=== PATIENT | female | born 1950 | race Caucasian/White ===

== ENCOUNTER 2016-09-08 23:23 | Emergency (ER) | payer OTHER ==
[~2016-09-08] VITALS: Ht 165.1 cm; Wt 67.0 kg
[~2016-09-08 23:23] MED LIST: CHLO25CA PO; LISI10TA PO; TRAM50 PO; ZIPR20 PO
[2016-09-08 23:26] VITALS: BP 163/74; PULSE 84; RESP 18; TEMP 97.2; O2SAT 98
[2016-09-09] MEDS ORDERED: LISI10TA3 PO (01:24)
[2016-09-09] MEDS ORDERED: ULTR50TA5 PO (01:24)
--- NOTE | 2016-09-09 01:58 | PD ---
HPI Chief Complaint: Fall Time Seen by Provider: 01:54 Travel History International Travel<30 days: No Contact w/Intl Traveler<30days: No Traveled to known affect area: No History of Present Illness HPI Patient comes in for evaluation status post fall while at work. 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 Patient is uncertain if she lost consciousness. Patient states she took her tramadol along with some Aleve at the time of the incident with little to no relief of her symptoms. Patient states as time passed she's become more stiff. Patient states she had a headache that has since resolved. Patient denies biting her tongue or dental injury. Patient has also developed pain in her low back since. Patient describes pain as a sore achiness. Patient concerned as she has had a clot on her brain before and had to have a shunt placed. She denies any nausea, vomiting, numbness or tingling anywhere, chest pain, shortness of breath, abdominal pain, being on any blood thinners, loss of bowel or bladder, or abdominal pain. PFSH Past Medical History Arthritis: No Asthma: No Autoimmune Disease: No Blood Disorders: No Anxiety: Yes Depression: Yes Heart Rhythm Problems: No Cancer: No Cardiac Catheterization: No Cardiovascular Problems: No High Cholesterol: No Chemotherapy: No Chest Pain: No Congestive Heart Failure: No COPD: No Cerebrovascular Accident: No Diabetes: No Diminished Hearing: No Endocrine: No Gastrointestinal Disorders: No GERD: No Glaucoma: No Genitourinary: No Headaches: No Hepatitis: No Hiatal Hernia: No Heparin Induced Thrombocytopen: No Hypertension: Yes Immune Disorder: No Implanted Vascular Access Dvce: No Kidney Stones: No Musculoskeletal: Yes (CHRONIC BLE PAIN) Neurologic: Yes Psychiatric: Yes (POLYSUBSTANCE ABUSED) Reproductive: No Respiratory: No Immunizations Current: Yes Migraines: Yes Myocardial Infarction: No Radiation Therapy: No Renal Failure: No Seizures: Yes Sickle Cell Disease: No Sleep Apnea: No Thyroid Disease: No Ulcer: No Tetanus Vaccination: > 5 Years Influenza Vaccination: No Menopausal: Yes : 1 Para: 1 Past Surgical History Abdominal Surgery: No AICD: No Appendectomy: No Arteriovenous Shunt: No Cardiac Surgery: No Cholecystectomy: No Coronary Artery Bypass Graft: No Ear Surgery: No Endocrine Surgery: No Eye Surgery: No Genitourinary Surgery: No Gynecologic Surgery: No Insulin Pump: No Joint Replacement: No Neurologic Surgery: Yes (FOR SUBDURAL HEMATOMA) Oral Surgery: No Pacemaker: No Thoracic Surgery: No Other Surgery: Yes (HEMATOMA ON HEAD 1 YEAR AGO WITH DRAINAGE TUBE. ) Social History Alcohol Use: Yes (Binge drinking, vodka) Tobacco Use: Yes (1 PPD) Substance Use: Yes (h/o polysubstance abuse) Allergies-Medications (Allergen,Severity, Reaction): Coded Allergies: No Known Allergies (Verified , 09/09/16) Reported Meds & Prescriptions Reported Meds & Active Scripts Active Robaxin (Methocarbamol) 500 Mg Tab 500 Mg PO Q8HR PRN Reported Ultram (Tramadol HCl) 50 Mg Tab 50 Mg PO Q8H PRN Lisinopril 10 Mg Tab 10 Mg PO DAILY Review of Systems Except as stated in HPI: all other systems reviewed are Neg Physical Exam Narrative GENERAL: Well-developed, well nourished, in no acute distress, and non-ill appearing. SKIN: Warm and dry. HEAD: Atraumatic. Normocephalic. EYES: Pupils equal and round. EOMI. No scleral icterus. No injection or drainage. ENT: No nasal bleeding or discharge. Mucous membranes pink and moist. No fractured or loose teeth noted. No bite daily on the tongue noted. NECK: Trachea midline. No midline tenderness or crepitus over the cervical spine or paravertebral spinal muscles. Supple. No nuclear rigidity. CARDIOVASCULAR: Radial dorsal pulses 2+, intact, and equal bilaterally. Capillary refill less than 2 seconds. RESPIRATORY: No accessory muscle use. No respiratory distress. MUSCULOSKELETAL: No obvious deformities. No clubbing. No cyanosis. No edema. Full range of motion. No tenderness or crepitus over midline lumbar spine. Straight leg test negative bilaterally.Shoulder:FROM equal BL with passive flexion, extension, Abduction, Adduction, internal/external rotation, and pronation/supination. Sensation equal BL deltoid muscles. Pulses equal BL distal to injury. Capillary refill less than 2 seconds distal to injury and equal BL. FROM distal to injury and equal BL. Strength distal to injury equal BL. NV intact distal to injury equal BL. Flexion and extension of thumb equal BL. Equal strength and movement with abduction/adductions of BL fingers. Dean [employer] strength equal BL. Knee: Negative patellar apprehension, varus and valgus maneuvers, anterior draw test, and Christopher test. Pulses equal BL distal to injury. Capillary refill less than 2 seconds distal to injury and equal BL. FROM distal to injury and equal BL. Strength distal to injury equal BL. NV intact distal to injury. Dorsal pulses equal BL. Patient reports tenderness palpation over bilateral anterior knees. NEUROLOGICAL: Awake and alert. No obvious cranial nerve deficits. Motor grossly within normal limits. Normal speech. PSYCHIATRIC: Appropriate mood and affect; insight and judgment normal. Data Data Last Documented VS Vital Signs Date Time Temp Pulse Resp B/P Pulse Ox O2 Delivery O2 Flow Rate FiO2 09/08/16 23:26 97.2 84 18 163/74 98 Orders Methocarbamol (Robaxin) (09/09/16 02:00) Ct Brain W/O Iv Contrast(Rout) (09/09/16 ) Ct Facial Bones W/O Iv Cont (09/09/16 ) Ct Cerv Spine W/O Contrast (09/09/16 ) Spine, Lumbar - Ltd (Ap & Lat) (09/09/16 ) Knee, Complete (4vws) (09/09/16 ) Knee, Complete (4vws) (09/09/16 ) MDM Medical Decision Making Medical Screen Exam Complete: Yes Emergency Medical Condition: Yes Differential Diagnosis Fracture, sprain, contusion, other Narrative Course Patient presents with closed head injury. There was no evidence of cranial or intracranial injury noted on CT of the head and no evidence of fracture or injury to cervical spine on C-spine CT. The patient has been behaving normally and no notable altered mental status. [place] score of 15. The neurologic exam is normal. The patient is awake and aware and motor sensory exams are normal. There is no clinical evidence to support intracranial injury or bleed. There is no significant jaw pain or tenderness. There is no malocclusion noted subjectively or objectively. There is no bruising under the tongue. There is no significant swelling, tenderness, bruising or deformity of the face to suggest fractures of face or nose. There is no nasal discharge or bleeding and no septal hematoma. There are no visual problems or significant bruising under eyes or midface. There is no evidence to suggest entrapment and there is no facial nerve palsy. There is no flattening of the cheek or altered sensation underneath the eye. The facial bones are stable and nonmobile. The airway is intact. Findings were discussed with the patient. The patient was instructed on pain medication, ice packs and elevation of head. The patient agreed with plan of care and management and will follow up with PCP. Patient presents with apparent back strain. The patient presented complaining of back pain. There was history of preceding trauma. X-rays were obtained and no obvious fracture or acute disease was noted at this time. The patient has no neurological complaints. The patient has been behaving normally and no notable altered mental status. [place] score of 15The patients neurological exam is normal with normal motor and sensory. There is no saddle paresthesias reported and no bowel or bladder incontinence or retention. . The patients evaluation was consistent with soft tissue injury and not consistent with bony injury. Clinical suspicion, plan of care and management was discussed with the patient. The patient was instructed to follow up with their health care provider. The patient was also instructed to return if the pain worsened, changed, or developed weakness or bowel or bladder trouble. The patient agreed with plan. There was no evidence to support genitourinary etiology. There is also no evidence to suggest vascular pathology such as AAA dissection. No fevers or other evidence to suspect infectious processes, abscess etc. The patient appears to have suffered a contusion of the knees. There is no clinical evidence to suspect bony injury by exam. Radiographic examination revealed no fracture seen at this time. The patient has full range of motion on active and passive motions. There is no significant edema. There is no proximal or distal joint effusion. The distal extremity appears neurovascularly intact, without evidence of neurovascular injury nor compartment syndrome. Tendon exam also was intact. The patient was discharged on pain medication instructions and given warnings for vascular compromise. The patient is to follow up with their regular physician or Orthopedics. The patient agrees with plan. Patient in no obvious distress upon re-evaluation. All pertinent Radiology result(s) discussed with patient. Patient reports her symptoms have almost completely resolved with the Robaxin. Patient was asked if they wanted to speak to my attending, which the patient did not wish to do at this time. Any questions/concerns in reference to patient diagnosis/condition discussed and clarified prior to patient's discharge. Reinforced sheer importance of close follow up with patient's primary physician or primary care clinic. Instructed patient to return to ED immediately, if symptoms return/worsen. Pt showed understanding of above instructions. Further instructions and recommendations were detailed in discharge paperwork. Pt ambulated without difficulty out of ED at discharge. Diagnosis Primary Impression: Contusion, multiple sites Additional Impressions: Head injury Qualified Code: S09.90XA - Head injury, initial encounter Low back strain Qualified Code: S39.012A - Low back strain, initial encounter Arthritis Fall Qualified Code: W19.XXXA - Fall, initial encounter Patient Instructions: Arthritis (ED), Contusion in Adults (ED), Fall Prevention (ED), General Instructions, Head Injury (ED), Low Back Strain (ED) Additional Instructions: Follow-up with your primary care physician and/or Workmen's Comp. provider this week for reevaluation. Take all medication as prescribed. Apply ice affected areas 20 minutes progressively for pain. Sleep in angle approximately 30 or higher to decrease bruising and/or pain to your face. Return to the emergency department if symptoms get worse. Med/Other Pt SpecificInfo: Prescription(s) given Scripts Methocarbamol (Robaxin)500 Mg Qll444 Mg PO Q8HR PRN (MUSCLE PAIN) #12 TAB Ref 0 Prov:Irish Vaughan MD 09/09/16 Disposition: 01 DISCHARGE HOME Condition: Stable Jarred Garvin Sep 09, 2016 01:58
[2016-09-09] MEDS ORDERED: METHOCARBAMOL 500 MG TAB PO ONE (02:00)
--- NOTE | 2016-09-09 02:42 | RADRPT ---
EXAM DATE/TIME: 09/09/2016 02:26 [facility] COMPARISON: No previous studies available for comparison. INDICATIONS : Fall RADIATION DOSE: 29.18 CTDIvol (mGy) MEDICAL HISTORY : Seizures. Hypertension. Subdural hematoma. SURGICAL HISTORY : Craniotomy. ENCOUNTER: Initial ACUITY: 1 day PAIN SCALE: 0/10 LOCATION: Bilateral cranial TECHNIQUE: Multiple contiguous axial images were obtained of the head. Using automated exposure control and adj ustment of the mA and/or kV according to patient size, radiation dose was kept as low as reasonably a chievable to obtain optimal diagnostic quality images. FINDINGS: CEREBRUM: The ventricles are normal for age. No evidence of midline shift, mass lesion, hemorrhage or acute in farction. No extra-axial fluid collections are seen. POSTERIOR FOSSA: The cerebellum and brainstem are intact. The 4th ventricle is midline. The cerebellopontine angle i s unremarkable. EXTRACRANIAL: The visualized portion of the orbits is intact. SKULL: Previous right sided craniotomy.. CONCLUSION: 1. Previous right craniotomy. No acute intracranial abnormalities. Baljeet Morel MD on September 09, 2016 at 2:40 Board Certified Radiologist. This report was verified electronically.
--- NOTE | 2016-09-09 02:45 | RADRPT ---
EXAM DATE/TIME: 09/09/2016 02:26 [facility] COMPARISON: No previous studies available for comparison. INDICATIONS : Fall RADIATION DOSE: 18.02 CTDIvol (mGy) MEDICAL HISTORY : Hypertension. Seizures. Subdural hematoma. SURGICAL HISTORY : Craniotomy. ENCOUNTER: Initial ACUITY: 1 day PAIN SCALE: 0/10 LOCATION: Bilateral neck TECHNIQUE: Volumetric scanning of the cervical spine was performed. Multiplanar reconstructions in the sagittal, coronal and oblique axial planes were performed. Using automated exposure control and adjustment o f the mA and/or kV according to patient size, radiation dose was kept as low as reasonably achievable to obtain optimal diagnostic quality images. FINDINGS: VERTEBRAE: Normal vertebral body height. ALIGNMENT: No evidence of subluxation. C2-C3: The bony spinal canal is normal in size. No evidence of disc bulge or herniation. The neural forami na are bilaterally patent. C3-C4: The bony spinal canal is normal in size. No evidence of disc bulge or herniation. The neural forami na are bilaterally patent. C4-C5: The bony spinal canal is normal in size. No evidence of disc bulge or herniation. The neural forami na are bilaterally patent. C5-C6: The bony spinal canal is normal in size. No evidence of disc bulge or herniation. The neural forami na are bilaterally patent. C6-C7: The bony spinal canal is normal in size. No evidence of disc bulge or herniation. The neural forami na are bilaterally patent. C7-T1: The bony spinal canal is normal in size. No evidence of disc bulge or herniation. The neural forami na are bilaterally patent. CONCLUSION: Normal examination for a patient of this age. Baljeet Morel MD on September 09, 2016 at 2:41 Board Certified Radiologist. This report was verified electronically.
--- NOTE | 2016-09-09 02:49 | RADRPT ---
EXAM DATE/TIME: 09/09/2016 02:26 [facility] COMPARISON: No previous studies available for comparison. INDICATIONS : Fall RADIATION DOSE: 27.97 CTDIvol (mGy) MEDICAL HISTORY : Seizures. Hypertension. Subdural hematoma. SURGICAL HISTORY : Craniotomy. ENCOUNTER: Initial ACUITY: 1 day PAIN SCORE: 0/10 LOCATION: Bilateral facial TECHNIQUE: Volumetric scanning of the facial bones was performed. Using automated exposure control and adjustme nt of the mA and/or kV according to patient size, radiation dose was kept as low as reasonably achiev able to obtain optimal diagnostic quality images. FINDINGS: ORBITS: The orbital and infraorbital osseous structures are intact. The retroconal structures have a normal configuration. No radiopaque foreign bodies are seen. NASAL BONE: The nasal bone and maxillary spine are intact ZYGOMATIC ARCHES: Symmetric without evidence of fracture. SINUSES: The maxillary, ethmoid and frontal sinuses are intact. No air-fluid levels seen. NASAL CAVITY: The nasal septum is intact and midline. The lacrimal ducts are intact. SOFT TISSUES: No radiopaque foreign bodies seen. No soft-tissue swelling is seen. INTRACRANIAL: No intracranial air seen. CRIBIFORM PLATE: Grossly intact. CONCLUSION: Normal examination. Baljeet Morel MD on September 09, 2016 at 2:44 Board Certified Radiologist. This report was verified electronically.
--- NOTE | 2016-09-09 02:55 | RADRPT ---
EXAM DATE/TIME: 09/09/2016 02:27 [facility] COMPARISON: No previous studies available for comparison. INDICATIONS : Fall. Low back pain. MEDICAL HISTORY : None. SURGICAL HISTORY : None. 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 No acute fracture or significant spondylolisthesis. CONCLUSION: 1. No acute findings. Moderate to severe degenerative change. Baljeet Morel MD on September 09, 2016 at 2:53 Board Certified Radiologist. This report was verified electronically.
--- NOTE | 2016-09-09 02:57 | RADRPT ---
EXAM DATE/TIME: 09/09/2016 02:28 [facility] COMPARISON: No previous studies available for comparison. INDICATIONS : Fall. Left knee pain. MEDICAL HISTORY : None. SURGICAL HISTORY : None. ENCOUNTER: Initial ACUITY: 1 day PAIN SCORE: 6/10 LOCATION: Left lateral FINDINGS: Four view examination of the left knee demonstrates no evidence of fracture or dislocation. Bony min eralization is normal. The articular surfaces are intact. The suprapatellar soft tissues have a nor mal configuration. CONCLUSION: 1. Mild osteoarthritis left knee. No acute bony abnormality. Baljeet Morel MD on September 09, 2016 at 2:54 Board Certified Radiologist. This report was verified electronically.
--- NOTE | 2016-09-09 02:58 | RADRPT ---
EXAM DATE/TIME: 09/09/2016 02:29 [facility] COMPARISON: No previous studies available for comparison. INDICATIONS : Fall. Right knee pain. MEDICAL HISTORY : None. SURGICAL HISTORY : None. ENCOUNTER: Initial ACUITY: 1 day PAIN SCORE: 5/10 LOCATION: Right lateral FINDINGS: Four view examination of the right knee demonstrates no evidence of fracture or dislocation. Bony mi neralization is normal. The articular surfaces are intact. The suprapatellar soft tissues have a no rmal configuration. CONCLUSION: 1. Mild osteoarthritis. No acute bony abnormalities. Baljeet Morel MD on September 09, 2016 at 2:56 Board Certified Radiologist. This report was verified electronically.
[2016-09-09] MEDS ORDERED: ROBA500T PO (03:08)
== END 2016-09-09 03:14 | disposition home or self-care (01) ==
LOC: NEPB 23:23
DX: S09.90XA Unspecified injury of head, initial encounter (principal); S39.012A Strain of muscle, fascia and tendon of lower back, initial encounter; S80.02XA Contusion of left knee, initial encounter; S80.01XA Contusion of right knee, initial encounter; W18.09XA Striking against other object with subsequent fall, initial encounter; Y99.0 Civilian activity done for income or pay
CPT/HCPCS: 70450; 70486; 72100; 72125; 73564